=== PATIENT | female | born 2005 | race Two or more races ===

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

== ENCOUNTER 2025-03-06 15:48 | Outpatient (CLI) | payer BC ==
[2025-03-07 08:07] LABS: Immunoglobulin A 159 mg/dL (87-352)
== END 2025-03-06 17:00 | disposition home or self-care (01) ==
LOC: LAB 15:48
DX: K58.0 Irritable bowel syndrome with diarrhea (principal)
CPT/HCPCS: 82784; 83516; 86255